=== PATIENT | female | born 1995 | race Caucasian/White ===

== ENCOUNTER 2016-11-18 15:33 | Emergency (ER) | payer MEDICAID ==
[~2016-11-18] VITALS: Ht 170.2 cm; Wt 97.0 kg
[~2016-11-18 15:33] MED LIST: BACT800T5 PO; BIRTH CONTROL; CEPH-460 PO; HYDR-3533 PO
[2016-11-18 15:36] VITALS: BP 121/61; PULSE 95; RESP 18; TEMP 99.4; O2SAT 98
--- NOTE | 2016-11-18 15:39 | PD ---
Physical Exam Date Seen by Provider: Nov 18, 2016 Time Seen by Provider: 15:37 Narrative 21 yo female here for evaluation of sore throat, body aches and flank pain. "I believe I might have mono". history of strep in the past. Has pain in the flanks as well as "in my spleen". Feels very fatigues. Symptoms started yesterday. No chest pain or SOB. no other complaints. Vitals sign stable. Patient awaiting bed placement. Data Data Last Documented VS Vital Signs Date Time Temp Pulse Resp B/P Pulse Ox O2 Delivery O2 Flow Rate FiO2 11/18/16 15:36 99.4 95 18 121/61 98 Room Air [facility] Medical Record Reviewed: Yes Supervised Visit with REESE: Sheng Rosa Nov 18, 2016 15:38
[2016-11-18 16:33] VITALS: PULSE 90; RESP 16; O2SAT 98
[2016-11-18 17:06] LABS: AUTOMATED NEUTROPHIL # 12.3 TH/MM3 (1.8-7.7); BASOPHIL % 0.2 % (0.0-2.0); EOSINOPHIL % 0.1 % (0.0-4.0); HEMATOCRIT 39.2 % (35.0-46.0); HEMO FLAGS DIFF FINAL; LYMPH % 12.5 % (9.0-44.0); LYMPHOCYTE # 1.9 TH/MM3 (1.0-4.8); MEAN CELL VOLUME 87.7 FL (80.0-100.0); MONO % 5.8 % (0.0-8.0); NEUT % 81.4 % (16.0-70.0); PLATELET COUNT 212 TH/MM3 (150-450); RED BLOOD COUNT 4.47 MIL/MM3 (4.00-5.30); RED CELL DISTRIBUTION WIDTH 12.9 % (11.6-17.2); WHITE BLOOD COUNT 15.1 TH/MM3 (4.0-11.0)
[2016-11-18 17:26] LABS: BICARBONATE 25.2 MEQ/L (21.0-32.0); POTASSIUM 3.6 MEQ/L (3.5-5.1)
--- NOTE | 2016-11-18 17:45 | PD ---
HPI Chief Complaint: Fever Time Seen by Provider: 16:32 Travel History International Travel<30 days: No Contact w/Intl Traveler<30days: No Traveled to known affect area: No History of Present Illness HPI Patient 21-year-old female presents emergency primary for a chief complaint of "I think I am on all". Patient states that she's been having some fever as well as sore throat for the past day and a half. 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 She states that she has been having some left upper quadrant uncomfortable feelings. Denies any nausea vomiting diarrhea vaginal bleeding vaginal discharge. Denies cough. Patient states she's been having chills at home but has not taken her temperature. States symptoms been gradually worsening. PFSH Past Medical History Asthma: Yes (WHEN SHE WAS 3 YEARS OLD) Diminished Hearing: No Immunizations Current: Yes Tetanus Vaccination: < 5 Years Influenza Vaccination: No ?: Not LMP: 10/09/16 : 1 Para: 1 Past Surgical History Section: Yes Social History Alcohol Use: No Tobacco Use: No Substance Use: No Allergies-Medications (Allergen,Severity, Reaction): Coded Allergies: No Known Allergies (Unverified , 06/13/16) Reported Meds & Prescriptions Reported Meds & Active Scripts Active Lortab (Hydrocodone-Acetaminophen) 5-325 Mg Tab 1 Tab PO Q4H PRN Keflex (Cephalexin) 500 Mg Cap 500 Mg PO Q6H Bactrim DS (Sulfamethoxazole-Trimethoprim) 800-160 Mg Tab 1 Tab PO BID Reported [ Control] Review of Systems Except as stated in HPI: all other systems reviewed are Neg Physical Exam Narrative GENERAL: Well-developed well-nourished no apparent distress SKIN: Focused skin assessment warm/dry. HEAD: Atraumatic. Normocephalic. EYES: Pupils equal and round. No scleral icterus. No injection or drainage. ENT: No nasal bleeding or discharge. Mucous membranes pink and moist. Oropharynx mildly erythematous, airway patent. Tonsils normal. NECK: Trachea midline. No JVD. Into neck is minimally tender but no lymphadenopathies fell. CARDIOVASCULAR: Regular rate and rhythm. No murmur appreciated. RESPIRATORY: No accessory muscle use. Clear to auscultation. Breath sounds equal bilaterally. GASTROINTESTINAL: Abdomen soft, non-tender, nondistended. Hepatic and splenic margins not palpable. MUSCULOSKELETAL: No obvious deformities. No clubbing. No cyanosis. No edema. NEUROLOGICAL: Awake and alert. No obvious cranial nerve deficits. Motor grossly within normal limits. Normal speech. PSYCHIATRIC: Appropriate mood and affect; insight and judgment normal. Data Data Last Documented VS Vital Signs Date Time Temp Pulse Resp B/P Pulse Ox O2 Delivery O2 Flow Rate FiO2 11/18/16 16:33 90 16 98 Room Air 11/18/16 15:36 99.4 121/61 Orders Influenzae A/B Antigen (11/18/16 16:31) Group A Rapid Strep Screen (11/18/16 16:31) Monoscreen (11/18/16 16:32) Complete Blood Count With Diff (11/18/16 16:32) Basic Metabolic Panel (Bmp) (11/18/16 16:32) Urinalysis - C+S If Indicated (11/18/16 16:32) Ed Urine Pregnancytest Poc (11/18/16 16:32) Strep Culture (Group A) (11/18/16 16:44) Labs Laboratory Tests Test 11/18/16 16:44 White Blood Count 15.1 TH/MM3 Red Blood Count 4.47 MIL/MM3 Hemoglobin 13.0 GM/DL Hematocrit 39.2 % Mean Corpuscular Volume 87.7 FL Mean Corpuscular Hemoglobin 29.0 PG Mean Corpuscular Hemoglobin 33.0 % Concent Red Cell Distribution Width 12.9 % Platelet Count 212 TH/MM3 Mean Platelet Volume 9.1 FL Neutrophils (%) (Auto) 81.4 % Lymphocytes (%) (Auto) 12.5 % Monocytes (%) (Auto) 5.8 % Eosinophils (%) (Auto) 0.1 % Basophils (%) (Auto) 0.2 % Neutrophils # (Auto) 12.3 TH/MM3 Lymphocytes # (Auto) 1.9 TH/MM3 Monocytes # (Auto) 0.9 TH/MM3 Eosinophils # (Auto) 0.0 TH/MM3 Basophils # (Auto) 0.0 TH/MM3 CBC Comment DIFF FINAL Differential Comment Sodium Level 134 MEQ/L Potassium Level 3.6 MEQ/L Chloride Level 101 MEQ/L Carbon Dioxide Level 25.2 MEQ/L Anion Gap 8 MEQ/L Blood Urea Nitrogen 15 MG/DL Creatinine 0.89 MG/DL Estimat Glomerular Filtration 81 ML/MIN Rate Random Glucose 81 MG/DL Calcium Level 8.9 MG/DL MDM Medical Decision Making Medical Screen Exam Complete: Yes Emergency Medical Condition: Yes Differential Diagnosis [place], strep throat, URI, pneumonia unlikely. Narrative Course 21-year-old female presents emergency Department with a chief complaint of "I think have mono". She appears well. Fairly possibility that she does have mono. Strep throat is also possibility. Basic laboratory workup is been sent. Patient was discussed with Dr. Florence follow-up labs and disposition properly. Condition: Stable Franco Price MD Nov 18, 2016 17:45
[2016-11-18 17:47] LABS: BACTERIA, URINE RARE /hpf; BLOOD, URINE NEG (NEG); COMMENT (UR) CULT NOT INDICATED; CULTURE IF INDICATED CULT NOT INDICATED; GLUCOSE,URINE NEG (NEG); KETONE, URINE 10 mg/dL (NEG); MUCUS URINE MOD /lpf (OCC); NITRITE,URINE NEG (NEG); SQUAMOUS EPITHELIAL CELL URINE 3 /hpf (0-5); URINE COLOR YELLOW (YELLW/STRAW)
[2016-11-18] MEDS ORDERED: DEXAMETHASONE SOD PHOS 20 MG/5 ML VIAL IV PUSH ONE (18:15)
[2016-11-18] MEDS ORDERED: KETOROLAC TROMETHAMINE 30 MG/ML (IVP) VIAL IV PUSH ONE (18:15)
[2016-11-18] MEDS ORDERED: SODIUM CHLOR 0.9% 1000 ML INJ 1,000 ML IV ONE (18:15)
[2016-11-18 18:30] VITALS: BP 109/57; PULSE 77; RESP 16; TEMP 98.8; O2SAT 99
--- NOTE | 2016-11-18 18:33 | PD ---
Physical Exam Date Seen by Provider: Nov 18, 2016 Data Data Last Documented VS Vital Signs Date Time Temp Pulse Resp B/P Pulse Ox O2 Delivery O2 Flow Rate FiO2 11/18/16 18:30 98.8 77 16 109/57 99 Room Air Orders Influenzae A/B Antigen (11/18/16 16:31) Group A Rapid Strep Screen (11/18/16 16:31) Monoscreen (11/18/16 16:32) Complete Blood Count With Diff (11/18/16 16:32) Basic Metabolic Panel (Bmp) (11/18/16 16:32) Urinalysis - C+S If Indicated (11/18/16 16:32) Ed Urine Pregnancytest Poc (11/18/16 16:32) Strep Culture (Group A) (11/18/16 16:44) Dexamethasone Inj (Decadron Inj) (11/18/16 18:15) Sodium Chlor 0.9% 1000 Ml Inj (Ns 1000 M (11/18/16 18:15) Ketorolac Inj (Toradol Inj) (11/18/16 18:15) Labs Laboratory Tests Test 11/18/16 11/18/16 16:44 16:45 White Blood Count 15.1 TH/MM3 Red Blood Count 4.47 MIL/MM3 Hemoglobin 13.0 GM/DL Hematocrit 39.2 % Mean Corpuscular Volume 87.7 FL Mean Corpuscular Hemoglobin 29.0 PG Mean Corpuscular Hemoglobin 33.0 % Concent Red Cell Distribution Width 12.9 % Platelet Count 212 TH/MM3 Mean Platelet Volume 9.1 FL Neutrophils (%) (Auto) 81.4 % Lymphocytes (%) (Auto) 12.5 % Monocytes (%) (Auto) 5.8 % Eosinophils (%) (Auto) 0.1 % Basophils (%) (Auto) 0.2 % Neutrophils # (Auto) 12.3 TH/MM3 Lymphocytes # (Auto) 1.9 TH/MM3 Monocytes # (Auto) 0.9 TH/MM3 Eosinophils # (Auto) 0.0 TH/MM3 Basophils # (Auto) 0.0 TH/MM3 CBC Comment DIFF FINAL Differential Comment Sodium Level 134 MEQ/L Potassium Level 3.6 MEQ/L Chloride Level 101 MEQ/L Carbon Dioxide Level 25.2 MEQ/L Anion Gap 8 MEQ/L Blood Urea Nitrogen 15 MG/DL Creatinine 0.89 MG/DL Estimat Glomerular Filtration 81 ML/MIN Rate Random Glucose 81 MG/DL Calcium Level 8.9 MG/DL Monoscreen NEG Urine Color YELLOW Urine Turbidity CLEAR Urine pH 6.0 Urine Specific [place] 1.034 Urine Protein TRACE mg/dL Urine Glucose (UA) NEG mg/dL Urine Ketones 10 mg/dL Urine Occult Blood NEG Urine Nitrite NEG Urine Bilirubin NEG Urine Urobilinogen 2.0 MG/DL Urine Leukocyte Esterase SMALL Urine WBC 1 /hpf Urine Squamous Epithelial 3 /hpf Cells Urine Bacteria RARE /hpf Urine Mucus MOD /lpf Microscopic Urinalysis Comment CULT NOT INDICATED MDM Medical Record Reviewed: Yes Supervised Visit with REESE: No Interpretation(s) Vital Signs Date Time Temp Pulse Resp B/P Pulse Ox O2 Delivery O2 Flow Rate FiO2 11/18/16 16:33 90 16 98 Room Air 11/18/16 16:33 18 11/18/16 15:36 99.4 95 18 121/61 98 Room Air Microbiology Date/Time Procedure Status Source Growth 11/18/16 16:44 Group A Streptococcus Screen (CHARLENE) - Final Complete Throat 11/18/16 16:44 Influenza Types A,B Antigen (CHARLENE) - Final Complete Nasal Aspirate NEGATIVE FOR FLU A AND B ANTIGEN.... 11/18/16 16:44 Group A Streptococcus Screen Received Throat Pending CBC & BMP Diagram 11/18/16 16:44 Differential Diagnosis Mononucleosis, strep pharyngitis, pneumonia, influenza, URI, viral syndrome Narrative Course Patient was sent out to me by Dr. Price at change of shift. Patient pending lab work and final disposition. Patient is a 21-year-old female who presents to emergency room with complaints of not feeling well for the past day and a half. 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 Patient reports that she has been having increased sore throat, reports myalgias, reports that she has been having fevers at home. Patient denies any cough or congestion, denies any abdominal pain, nausea or vomiting. Patient concerned that she may have other strep throat or mononucleosis. Overall, patient nontoxic and evaluation. Patient is well-appearing, vital signs are stable. Vital Signs Date Time Temp Pulse Resp B/P Pulse Ox O2 Delivery O2 Flow Rate FiO2 11/18/16 16:33 90 16 98 Room Air 11/18/16 16:33 18 11/18/16 15:36 99.4 95 18 121/61 98 Room Air CBC & BMP Diagram 11/18/16 16:44 Patient does have a white count of 15.1, this could be from URI and strep pharyngitis. [place] spot pending Microbiology Date/Time Procedure Status Source Growth 11/18/16 16:44 Group A Streptococcus Screen (CHARLENE) - Final Complete Throat 11/18/16 16:44 Influenza Types A,B Antigen (CHARLENE) - Final Complete Nasal Aspirate NEGATIVE FOR FLU A AND B ANTIGEN.... 11/18/16 16:44 Group A Streptococcus Screen Received Throat Pending strep culture as well as mono spot pending at this time. plan to give dose of dexamethasone and toradol and IVF for symptomatic relief. Patient understands that she will need to follow up with cultures from today Patient reevaluated, patient feeling much better at this time. Patient with negative mononucleosis test. Plan to treat her pharyngitis. Patient will follow-up with her primary care doctor, she will also follow-up with culture today. Patient thankful for care Diagnosis Primary Impression: Pharyngitis Qualified Code: J02.9 - Pharyngitis, unspecified etiology Patient Instructions: General Instructions Additional Instruction: Please follow-up with cultures from today Return to emergency room as needed Please follow-up with your primary care doctor and 2-3 days Please take all medications as prescribed Med/Other Pt SpecificInfo: Prescription(s) given Scripts Amoxicillin-Clavulanate (Augmentin)875-125 mg [id number] Mg PO BID 10 Days Ref 0 not for use in CrCl <30 ml/min. Prov:Anne Florence DO 11/18/16 Disposition: 01 DISCHARGE HOME Condition: Stable Anne Florence DO Nov 18, 2016 18:33
[2016-11-18] MEDS ORDERED: AUGM875T PO (19:10)
[2016-11-18] MEDS ORDERED: AMOXICILLIN/CLAVULANATE K 875 MG TAB PO ONE (19:15)
== END 2016-11-18 20:00 | disposition home or self-care (01) ==
LOC: NEPD 15:33
DX: J02.9 Acute pharyngitis, unspecified (principal)
CPT/HCPCS: 80048; 81001; 84703; 85025; 86308; 87081; 87804; 87880; 96374; 96375; 99283; J1100; J1885; J7030